=== PATIENT | male | born 1955 | race Caucasian/White ===

== ENCOUNTER 2016-11-16 04:02 | Emergency (ER) | payer MEDICAID, OTHER ==
[~2016-11-16] VITALS: Ht 182.9 cm; Wt 90.7 kg
[~2016-11-16 04:02] MED LIST: CARV3.122 PO; CETI10TA22 PO; FERR325T72 PO; FURO-68 PO; FURO40TA4 PO; LEVO75TA PO; PANT40TA5 PO; POTA10TA10 PO; SPIR25TA PO; TAMS0.4C2 PO
--- NOTE | 2016-11-16 04:24 | PHYS DOC ---
Past Medical History Past Medical History: GERD, Hypertension, Hypothyroid, Hepatitis, Other Additional Past Medical Histor: cirrhosis, HepC Past Surgical History: No Surgical History Alcohol Use: None Drug Use: None Adult General Chief Complaint Chief Complaint: ABDOMINAL PAIN HPI HPI This 61-year-old male is presenting from [facility] for severe lower abdominal pain that started around 9 PM. Patient has vomited multiple times. States his last bowel movement was earlier today and was loose but had no blood. He denies any blood in his vomit. He rates his pain an 9 out of 10 on the pain scale. Patient has past history of cirrhosis and prior varices. He does state he recently had 3 L of fluid drained off his abdomen. He denies having significant swelling his abdomen today. He denies any fever or chills. He denies any chest pain or shortness of breath. He states he has had bilateral inguinal hernia repairs and has had his appendix removed but denies any other significant abdominal surgeries. Review of Systems Review of Systems Constitutional: Denies fever or chills [] Eyes: Denies change in visual acuity, redness, or eye pain [] HENT: Denies nasal congestion or sore throat [] Respiratory: Denies cough or shortness of breath [] Cardiovascular: No additional information not addressed in HPI [] GI: Has abdominal pain, has nausea, has vomiting, denies bloody stools, denies diarrhea [] : Denies dysuria or hematuria [] Musculoskeletal: Denies back pain or joint pain [] Integument: Denies rash or skin lesions [] Neurologic: Denies headache, focal weakness or sensory changes [] Endocrine: Denies polyuria or polydipsia [] Current Medications Current Medications Current Medications Medications (Trade) Dose Ordered Sig/[facility] Start Time Stop Time Status Last Admin Dose Admin Fentanyl Citrate (Fentanyl 2ml Vial) 50 mcg 1X ONCE 11/16/16 04:45 11/16/16 04:46 DC 11/16/16 04:47 50 MCG Info (Do NOT chart on this entry -- for MONITORING) 1 each PRN DAILY PRN 11/16/16 04:45 11/18/16 04:44 Iohexol (Omnipaque 300 Mg/ml) 75 ml 1X ONCE 11/16/16 04:45 11/16/16 04:46 DC 11/16/16 05:32 75 ML Ondansetron HCl (Zofran) 4 mg 1X ONCE 11/16/16 04:45 11/16/16 04:46 DC 11/16/16 04:47 4 MG Allergies Allergies Allergies Coded Allergies Type Severity Reaction Last Updated Verified No Known Drug Allergies 09/18/13 No Physical Exam Physical Exam Constitutional: Well developed, well nourished, no acute distress, non-toxic appearance. [] HENT: Normocephalic, atraumatic, bilateral external ears normal, oropharynx moist, no oral exudates, nose normal. [] Eyes: PERRLA, EOMI, conjunctiva normal, no discharge. [] Neck: Normal range of motion, no tenderness, supple, no stridor. [] Cardiovascular:Heart rate regular rhythm, no murmur [] Lungs & Thorax: Bilateral breath sounds clear to auscultation [] Abdomen: Bowel sounds normal, soft, no tenderness, no masses, no pulsatile masses. [] Skin: Warm, dry, no erythema, no rash. [] Back: No tenderness, no CVA tenderness. [] Extremities: No tenderness, no cyanosis, no clubbing, ROM intact, no edema. [] Neurologic: Alert and oriented X 3, normal motor function, normal sensory function, no focal deficits noted. [] Psychologic: Affect normal, judgement normal, mood normal. [] Current Patient Data Vital Signs Vital Signs Date Time Temp Pulse Resp B/P Pulse Ox O2 Delivery O2 Flow Rate FiO2 11/16/16 04:30 99.1 92 16 122/67 95 Room Air 99.1 Lab Values Laboratory Tests Test 11/16/16 04:35 White Blood Count 2.8x10^3/uL (4.0-11.0) L Red Blood Count 4.14x10^6/uL (4.30-5.70) L Hemoglobin 12.0g/dL (13.0-17.5) L Hematocrit 36.7% (39.0-53.0) L Mean Corpuscular Volume 89fL (79-100) Mean Corpuscular Hemoglobin 29pg (25-35) Mean Corpuscular Hemoglobin Concent 33g/dL (31-37) Red Cell Distribution Width 19.7% (11.5-14.5) H Platelet Count 34x10^3/uL (140-400) L Neutrophils (%) (Auto) 89% (31-73) H Lymphocytes (%) (Auto) 6% (24-48) L Monocytes (%) (Auto) 4% (0-9) Eosinophils (%) (Auto) 1% (0-3) Basophils (%) (Auto) 0% (0-3) Neutrophils # (Auto) 2.5x10^3uL (1.8-7.7) Lymphocytes # (Auto) 0.2x10^3/uL (1.0-4.8) L Monocytes # (Auto) 0.1x10^3/uL (0.0-1.1) Eosinophils # (Auto) 0.0x10^3/uL (0.0-0.7) Basophils # (Auto) 0.0x10^3/uL (0.0-0.2) Platelet Estimate Pending Sodium Level 143mmol/L (136-145) Potassium Level 3.6mmol/L (3.5-5.1) Chloride Level 107mmol/L (98-107) Carbon Dioxide Level 28mmol/L (21-32) Anion Gap 8 (6-14) Blood Urea Nitrogen 20mg/dL (8-26) Creatinine 0.9mg/dL (0.7-1.3) Estimated GFR (Cockcroft-Gault) 86.4 BUN/Creatinine Ratio 22 (6-20) H Glucose Level 101mg/dL (70-99) H Calcium Level 8.8mg/dL (8.5-10.1) Total Bilirubin 1.4mg/dL (0.2-1.0) H Aspartate Amino Transferase (AST) 56U/L (15-37) H Alanine Aminotransferase (ALT) 43U/L (16-63) Alkaline Phosphatase 100U/L (46-116) NO-Tzw-Z-Type Natriuretic Peptide 143pg/mL (0-124) H Total Protein 6.9g/dL (6.4-8.2) Albumin 3.5g/dL (3.4-5.0) Albumin/Globulin Ratio 1.0 (1.0-1.7) Lipase 133U/L (73-393) Laboratory Tests 11/16/16 04:35 Laboratory Tests 11/16/16 04:35 EKG EKG EKG interpreted by me reveals a sinus rhythm with a rate of 87 bpm. There is a leftward axis. There are no acute ischemic findings on this EKG. Radiology/Procedures Radiology/Procedures CT of the abdomen/pelvis with IV contrast demonstrates the following: FINDINGS There is moderate bilateral gynecomastia. Cardiac size normal. There is minimal right lower lobe dependent atelectasis. There is abdominal and pelvic ascites, mild. There is stable marked splenomegaly. Cirrhotic liver. Portal vein is patent. There are several subcentimeter hypodensities in the liver that are unchanged. These are incompletely evaluated. Gallbladder, pancreas, adrenal glands, and abdominal aortic caliber are normal. Kidneys enhance symmetrically without hydronephrosis. Small cortical cyst lower pole of right kidney. There is likely gastric wall thickening. There are dilated and thickened small bowel loops, distal duodenum and proximal jejunum. Distal small bowel is decompressed. There is mild wall thickening of portions of the colon. Urinary bladder is normal. Prostate size normal. There is bilateral L5 spondylolysis. There is grade 1 anterolisthesis of L5 on S1. There is disc space narrowing and likely reactive endplate changes of L2/L3. There is compression fracture at the superior endplate of T11. There is also mild loss of height of T8 vertebral body. Findings stable from prior study. Course & Med Decision Making Course & Med Decision Making Pertinent Labs and Imaging studies reviewed. (See chart for details) This 61-year-old male who presents with significant lower abdominal pain will have IV and lab work drawn. IV pain control will be administered. CT of his abdomen and pelvis will be obtained rule out any acute cause of his symptoms. Upon my final reassessment, the patient successfully PO challenged and his pain is significantly improved. Patient did not actively vomit while in the department. CT of his abdomen and pelvis demonstrated a nonspecific enterocolitis. In light of the fact that I have easily controlled his pain and he is not actively vomited, I will be discharging him with a course of Zofran and he will follow-up with his primary care doctor in the next several days with strict instructions return if his pain should worsen or he is unable to tolerate oral fluids. His laboratory workup was unremarkable. Dragon Disclaimer Dragon Disclaimer This electronic medical record was generated, in whole or in part, using a voice recognition dictation system. Departure Departure Impression: Primary Impression: Abdominal pain Additional Impression: Enterocolitis Disposition: 01 HOME, SELF-CARE Referrals: NON,STAFF (PCP) Patient Instructions: Colitis Additional Instructions: Follow-up with your primary care doctor next several days for your abdominal pain. Continue to stay well-hydrated with fluids. Take Zofran as needed for any nausea. Return to ER if your abdominal pain should worsen or if you are unable to tolerate fluids. Return to ER if you develop any significant fever. Scripts Ondansetron Hcl (Zofran)4 Mg Tablet4 Mg PO BID PRN NAUSEA/VOMITING #10 TAB Prov:MAYDA CORRIGAN DO 11/16/16 Problem Qualifiers MAYDA CORRIGAN DO Nov 16, 2016 04:24
[2016-11-16] MEDS ORDERED: IOHEXOL 300 MG/ML 75 ML VIAL IV ONE (04:45)
[2016-11-16] MEDS ORDERED: ONDANSETRON PF 4 MG/2 ML VIAL. IV ONE (04:45)
[2016-11-16] MEDS ORDERED: CONTRAST GIVEN MC PRN (04:45)
[2016-11-16] MEDS ORDERED: FENTANYL PF 100 MCG/2 ML VIAL. IV ONE (04:45)
[2016-11-16 05:02] LABS: BASO % 0 % (0-3); EOS % 1 % (0-3); HEMATOCRIT 36.7 % (39.0-53.0); LYMPH # 0.2 x10^3/uL (1.0-4.8); LYMPH % 6 % (24-48); MEAN CORPUSCULAR HEMOGLOBIN 29 pg (25-35); MEAN CORPUSCULAR HGB CONC 33 g/dL (31-37); MEAN CORPUSCULAR VOLUME 89 fL (79-100); MONO % 4 % (0-9); NEUT % 89 % (31-73); PLATELET COUNT 34 x10^3/uL (140-400); RED BLOOD COUNT 4.14 x10^6/uL (4.30-5.70); RED CELL DISTRIBUTION WIDTH 19.7 % (11.5-14.5); WHITE BLOOD COUNT 2.8 x10^3/uL (4.0-11.0)
[2016-11-16 05:12] LABS: CALCIUM 8.8 mg/dL (8.5-10.1); CREATININE 0.9 mg/dL (0.7-1.3); GFR 86.4; POTASSIUM 3.6 mmol/L (3.5-5.1)
[2016-11-16 05:20] LABS: ALBUMIN 3.5 g/dL (3.4-5.0); TOTAL BILIRUBIN 1.4 mg/dL (0.2-1.0); TOTAL PROTEIN 6.9 g/dL (6.4-8.2)
--- NOTE | 2016-11-16 06:09 | RAD ---
PROCEDURE CT abdomen pelvis with contrast. HISTORY Abdominal pain that started around 9 p.m.. Vomiting. TECHNIQUE Helical CT imaging of the abdomen and pelvis is performed after 75 cc Omnipaque 300 IV contrast. PQRS: One or more the following individualized dose reduction techniques were utilized for the study: 1. Automated exposure control. 2. Adjustment of the mA and/or kV according to patient size. 3. Use of iterative reconstruction technique. COMPARISON CT abdomen pelvis without contrast, September 17, 2016. FINDINGS There is moderate bilateral gynecomastia. Cardiac size normal. There is minimal right lower lobe dependent atelectasis. There is abdominal and pelvic ascites, mild. There is stable marked splenomegaly. Cirrhotic liver. Portal vein is patent. There are several subcentimeter hypodensities in the liver that are unchanged. These are incompletely evaluated. Gallbladder, pancreas, adrenal glands, and abdominal aortic caliber are normal. Kidneys enhance symmetrically without hydronephrosis. Small cortical cyst lower pole of right kidney. There is likely gastric wall thickening. There are dilated and thickened small bowel loops, distal duodenum and proximal jejunum. Distal small bowel is decompressed. There is mild wall thickening of portions of the colon. Urinary bladder is normal. Prostate size normal. There is bilateral L5 spondylolysis. There is grade 1 anterolisthesis of L5 on S1. There is disc space narrowing and likely reactive endplate changes of L2/L3. There is compression fracture at the superior endplate of T11. There is also mild loss of height of T8 vertebral body. Findings stable from prior study. IMPRESSION 1. Proximal small bowel is thick-walled and dilated. There is wall thickening of portions of the colon. Findings suggest a nonspecific enterocolitis. 2. There is gastric wall thickening suggesting nonspecific gastritis. 3. Mild abdominal and pelvic ascites. 4. Stable cirrhotic liver and marked splenomegaly. Electronically signed by: Thiago Self MD (Nov 16, 2016 06:07:40)
[2016-11-16 06:13] VITALS: BP 144/69
[2016-11-16] MEDS ORDERED: ONDA4TAB7 PO (06:27)
--- NOTE | 2016-11-16 08:38 | EKG ---
[facility] [address] [place] [address] Test Date: 2016-11-16 Test Time: 04:30:07 Pat Name: ALEJANDRA MARTÍNEZ Department: Room: Gender: M Emergency Services Dispatcher: : 1955 Requested By: MAYDA CORRIGAN Order Number: [id number] Reading MD: Measurements Intervals [place] Rate: 87 P: 18 WV: 178 QRS: -14 QRSD: 88 T: 56 QT: 360 QTc: 434 Interpretive Statements SINUS RHYTHM LEFTWARD AXIS QRS(T) CONTOUR ABNORMALITY CONSIDER ANTEROLATERAL MYOCARDIAL DAMAGE POSSIBLY ABNORMAL ECG RI6.01 No previous ECG available for comparison
[2016-11-16 10:15] LABS: PLT ESTIMATE DECREASED (ADEQUATE)
[2016-11-16 10:16] LABS: ANISOCYTOSIS SLIGHT
== END 2016-11-16 07:00 | disposition home or self-care (01) ==
LOC: ER 04:02
DX: K52.9 Noninfective gastroenteritis and colitis, unspecified (principal); K21.9 Gastro-esophageal reflux disease without esophagitis; I10 Essential (primary) hypertension; E03.9 Hypothyroidism, unspecified; Z86.19 Personal history of other infectious and parasitic diseases
CPT/HCPCS: 36415; 74177; 80053; 83690; 83880; 85007; 85027; 93005; 96374; 96376; 99285; J2405; J3010; Q9967

== ENCOUNTER → 2016-12-15 | Day surgery (SDC) | payer OTHER ==
[~2016-12-15] MED LIST changes: +FENTANYL PF 100 MCG/2 ML VIAL. IV PRN; +HYDROMORPHONE 2 MG/ML VIAL. IV PRN; +IV RINGERS,LACTATED 1000ML 1,000 ML IV SCH; +LIDOCAINE 1% 1 ML SYRINGE. ID PRN; +MORPHINE SULFATE 2 MG/ML DISP.SYRIN. IV PRN; +ONDA4TAB7 PO; +ONDANSETRON PF 4 MG/2 ML VIAL. IV PRN; +PROCHLORPERAZINE 10 MG/2 ML VIAL. IV PRN; +PROPOFOL 20 ML IV ONE
--- NOTE | 2016-12-15 09:32 | PDOC1 ---
History and Physical Date of Admission Date of Admission DATE: 12/15/16 TIME: 09:27 Source Source: Chart review, Patient History of Present Illness History of Present Illness 61 y/o male with prior variceal bleed in 09/18. Banded then. Presents now for f/u and further banding if needed. 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 H/o ascites as well, controlled with meds. Otherwise no complaints. Past Medical History Cardiovascular: CHF, HTN Renal/: Benign prostatic enlarg. Endocrine: Hypothyroidism Past Surgical History Past Surgical History: Hernia Repair, Tonsillectomy Family History Family History: Coronary Artery Disease, Diabetes, Hypertension, Stroke Social History ALCOHOL: none Drugs: None (in past) Current Medications Current Medications Current Medications Ondansetron HCl (Zofran) 4 mg PRN Q6HRS PRN IV Nausea; Start 12/15/16 at 07:00 ; Stop 12/16/16 at 06:59 Fentanyl Citrate (Fentanyl 2ml Vial) 25 mcg PRN Q5MIN PRN IV MILD PAIN; Start 12/15/16 at 07:00; Stop 12/16/16 at 06:59 Fentanyl Citrate (Fentanyl 2ml Vial) 50 mcg PRN Q5MIN PRN IV MODERATE PAIN; Start 12/15/16 at 07:00; Stop 12/16/16 at 06:59 Morphine Sulfate 1 mg 1 mg PRN Q10MIN PRN IV SEVERE PAIN; Start 12/15/16 at 07: 00; Stop 12/16/16 at 06:59 Lactated Ringer's (Iv Lactated Ringers) 1,000 ml @ 30 mls/hr Q24H IV Last administered on 12/15/16t 09:13; Start 12/15/16 at 07:00; Stop 12/15/16 at 18:59 Lidocaine HCl 2 ml 1X PRN PRN ID IV START; Start 12/15/16 at 07:00; Stop at 06:59 Hydromorphone HCl (Dilaudid) 0.5 mg PRN Q10MIN PRN IV SEVERE PAIN, Second choice; Start 12/15/16 at 07:00; Stop 12/16/16 at 06:59 Prochlorperazine Edisylate (Compazine) 5 mg PACU PRN PRN IV NAUSEA; Start 12/15 at 07:00; Stop 12/16/16 at 06:59 Active Scripts Active Zofran (Ondansetron Hcl) 4 Mg Tablet 4 Mg PO BID PRN Lasix (Furosemide) 40 Mg Tablet 40 Mg PO BID Aldactone (Spironolactone) 25 Mg Tablet 100 Mg PO DAILY Feosol (Ferrous Sulfate) 325 Mg Tablet 325 Mg PO QHS Reported Synthroid (Levothyroxine Sodium) 75 Mcg Tablet 1 Tab PO DAILY Tamsulosin Hcl 0.4 Mg Cap.er.24h 1 Cap PO DAILY Potassium Chloride 10 Meq Tablet.er 10 Meq PO DAILY Pantoprazole Sodium 40 Mg Tablet.dr 1 Tab PO DAILY Carvedilol 3.125 Mg Tablet 1 Tab PO BID Allergies Allergies: Coded Allergies: No Known Drug Allergies (Unverified , 12/15/16) ROS Review of System 10-point review negative otherwise. Physical Exam General: Alert, Oriented X3, Cooperative, No acute distress Lungs: Clear to auscultation Heart: S1S2, RRR, no gallops, no murmurs Abdomen: Normal bowel sounds, Soft, No tenderness, No hepatosplenomegaly, No masses Rectal Exam: not examined Extremities: No cyanosis, No edema Skin: No significant lesion Neuro: Normal speech, Strength at 5/5 X4 ext, Normal tone, Sensation intact, Cranial nerves 3-12 NL, Reflexes 2+ Psych/Mental Status: Mental status NL, Mood NL Vitals Vitals Vital Signs Date Time Temp Pulse Resp B/P Pulse Ox O2 Delivery O2 Flow Rate FiO2 12/15/16 09:04 98.0 57 20 98 98.0 VTE Prophylaxis Ordered VTE Prophylaxis Devices: No VTE Pharmacological Prophylaxi: No Assessment/Plan Assessment/Plan IMP: prior variceal bleed; f/u re: further treatment PLAN: EGD, possible banding. LISBETH INMAN MD Dec 15, 2016 09:32
--- NOTE | 2016-12-15 09:52 | PDOC4 ---
PROCEDURE Procedure EGD/banding IND: h/o variceal bleed Meds: per anesthesia Findings: E--healed reflux at 40cm. Grade IV varices, ~3-4 columns from 30-40cm. 4 varices banded/6 bands. G--Portal gastropathy, diffuse D--normal to second portion. Abdelrahman. well. IMP: varices, banded REC: liquid diet for 48 hours. resume meds. Repeat exam in 6-8 weeks. LISBETH INMAN MD Dec 15, 2016 09:52
[2016-12-15 10:19] VITALS: BP 143/86
== END | disposition home or self-care (01) ==
LOC: ENDOS 08:51 → EEVIPCON 10:00
PROVIDERS: ATTEND Internal Medicine Gastroenterology
DX: K21.0 Gastro-esophageal reflux disease with esophagitis (principal); I85.00 Esophageal varices without bleeding; K76.6 Portal hypertension; K31.89 Other diseases of stomach and duodenum; I10 Essential (primary) hypertension; E03.9 Hypothyroidism, unspecified; B19.20 Unspecified viral hepatitis C without hepatic coma
CPT/HCPCS: 43244; J2704